=== PATIENT | male | born 1990 | race Two or more races ===

== ENCOUNTER 2024-10-15 16:09 | Emergency (ER) | payer BC ==
[~2024-10-15] VITALS: Ht 172.7 cm; Wt 63.5 kg
[2024-10-15] MEDS ORDERED: AMOX-430 PO (17:20)
[2024-10-15] MEDS ORDERED: dexaMETHasone SOD PHOSPHATE 4 MG/ML VIAL ONE (17:24)
[2024-10-15 17:32] VITALS: BP 117/62; TEMP 99.2; O2SAT 97
[2024-10-15] MEDS: dexaMETHasone SOD PHOSPHATE 4 MG/ML VIAL IM ONE (17:32)
== END 2024-10-15 17:32 | disposition home or self-care (01) ==
LOC: ER 16:22
DX: J02.0 Streptococcal pharyngitis (principal); R59.1 Generalized enlarged lymph nodes; Z60.2 Problems related to living alone
CPT/HCPCS: 99283; 96372; J1100

== ENCOUNTER 2024-12-14 19:49 | Emergency (ER) | payer BC ==
[~2024-12-14] VITALS: Ht 172.7 cm; Wt 68.0 kg
[~2024-12-14 19:49] MED LIST: AMOX-430 PO
[2024-12-14 20:58] VITALS: BP 107/71; TEMP 99.4; O2SAT 96
[2024-12-14] MEDS ORDERED: dexaMETHasone SOD PHOSPHATE 1 ML ONE (21:04)
[2024-12-14] MEDS ORDERED: KETOROLAC TROMETHAMINE 15 MG/ML VIAL ONE (21:04)
[2024-12-14] MEDS ORDERED: IBUP-1490 PO (21:06)
[2024-12-14] MEDS: dexaMETHasone SOD PHOSPHATE 4 MG/ML VIAL IM ONE (21:20)
[2024-12-14] MEDS: KETOROLAC TROMETHAMINE 15 MG/ML VIAL IM ONE (21:21)
== END 2024-12-14 21:21 | disposition home or self-care (01) ==
LOC: ER 19:51
DX: J06.9 Acute upper respiratory infection, unspecified (principal); B97.89 Other viral agents as the cause of diseases classified elsewhere; R13.10 Dysphagia, unspecified; M54.9 Dorsalgia, unspecified; Z60.2 Problems related to living alone
CPT/HCPCS: 99284; 96372; J1885; J1100

== ENCOUNTER 2024-12-19 19:26 | Emergency (ER) | payer BC ==
[~2024-12-19] VITALS: Ht 172.7 cm; Wt 68.0 kg
[~2024-12-19 19:26] MED LIST changes: +IBUP-1490 PO
[2024-12-19 20:58] VITALS: TEMP 97.8
[2024-12-19] MEDS ORDERED: AMOX-430 PO (21:31)
[2024-12-19] MEDS ORDERED: AMOX/CLAVULANATE 875 MG TABLET ONE (21:33)
[2024-12-19] MEDS: AMOX/CLAVULANATE 875 MG TABLET PO ONE (21:36)
[2024-12-19 21:38] VITALS: BP 111/68; O2SAT 98
== END 2024-12-19 21:37 | disposition home or self-care (01) ==
LOC: ER 19:32
DX: J06.9 Acute upper respiratory infection, unspecified (principal); B97.89 Other viral agents as the cause of diseases classified elsewhere; J18.9 Pneumonia, unspecified organism; R05.9 Cough, unspecified; R07.9 Chest pain, unspecified; Z60.2 Problems related to living alone
CPT/HCPCS: 71045-TC